=== PATIENT | male | born 1945 | race Caucasian/White ===

== ENCOUNTER 2024-07-21 09:55 | Outpatient (RCR) | payer MEDICARE, OTHER, SELFPAY ==
--- NOTE | 2024-07-21 12:23 | OPREHPOC ---
Outpatient Therapy Plan of Care This is a Multidisciplinary Plan of Care that may contain components documented by all disciplines (PT, OT, and ST.) PT Problem 1 PT Problem #1 Knowledge Deficit PT Goal 1 Goal / Goal Update Independent and compliant with HEP. Target Visit 4 PT Problem 2 PT Problem #2 Pain PT Goal 1 Goal / Goal Update Pt to report no more than 1/10 pain at rest. Pt to report no more than 3/10 pain with activity. Target Visit 12 PT Problem 3 PT Problem #3 Impaired Range of Motion PT Goal 1 Goal / Goal Update Pt to improve R knee AROM to 0-120. Target Visit 12 PT Problem 4 PT Problem #4 Impaired Strength PT Goal 1 Goal / Goal Update Pt to improve R LE strength to 5/5. Target Visit 12 PT Problem 5 PT Problem #5 Impaired Functional Mobility PT Goal 1 Goal / Goal Update Pt to improve 6MWT distance to 800 ft without rest . Pt to report being able to walk 35 laps (approx. 1 mile) near his home without rest. Pt to report 20% improvement on LEFS. Target Visit 12
--- NOTE | 2024-07-21 12:24 | PTOPEVAL1 ---
Assessment and note entered by Linda Mayfield, PT Evaluation Information Assessment Status Evaluation ICD-10 Condition Codes (PT) Pain in right knee M25.561,Encounter for other orthopedic aftercare Z47.89,Aftercare following joint replacement surgery Z47.1 Onset 06/24/24 Subjective Information Pt reports he underwent R TKA on 06/24/24. He states he received home health after surgery and states they gave him heel slides, supine hip abduction, quad sets, SLR, standing marching, and calf stretch. Shortly after surgery he had spontaneous chest pain and underwent cardiac cath one week ago. He's currently on precautions per his retail mortgage banker for no heavy lifting or strenuous exercise. Contacted his retail mortgage banker's nurse during evaluation and pt is cleared for vasopneumatic compression. States he initially ambulated using a walker after knee surgery and now only ambulates with a cane over uneven surfaces. Does not use an AD on level surfaces. Reported Pain Level Pain Score 4: Self Report Assessment PT Clinical Summary Mr. Lira is a 78 yo male who enters the clinic for rehabilitation following R TKA on 06/24/24. His incision is closed and demonstrates good healing. Pt demonstrates mild AROM deficits in the R knee along with mild strength deficits and moderate edema. He will benefit from skilled PT intervention to improve on these deficits to return to normal daily functional tasks at home and long distance walking without pain or difficulty. Plan of Care Interventions Electrical Stimulation,Hot Pack/Cold Pack, Intermittent Compression Pump,Manual Therapy,Neuro Re-education,Patient/Caregiver Education, Therapeutic Activities,Therapeutic Exercise,Self- Care/Home Management PT Services Indicated Yes Treatment Frequency and 2x/week for 12 visits Duration These treatments will address the objective and functional deficits as defined above. The patient will be advanced safely and appropriately in order for the patient to progress towards his/her prior level of function. Additional exercises will be introduced and as well as a comprehensive home exercise program upon discharge, if needed, ?to ensure carryover of functional gains achieved in the clinic. This treatment plan has been reviewed and agreement upon by the patient.
--- NOTE | 2024-08-20 10:19 | OPREHPOC ---
Outpatient Therapy Plan of Care This is a Multidisciplinary Plan of Care that may contain components documented by all disciplines (PT, OT, and ST.) PT Problem 1 PT Problem #1 Knowledge Deficit PT Goal 1 Goal / Goal Update Independent and compliant with HEP. Target Visit 4 Progress Met PT Problem 2 PT Problem #2 Pain PT Goal 1 Goal / Goal Update Pt to report no more than 1/10 pain at rest. -met Pt to report no more than 3/10 pain with activity. -met Target Visit 12 Progress Met PT Problem 3 PT Problem #3 Impaired Range of Motion PT Goal 1 Goal / Goal Update Pt to improve R knee AROM to 0-120. Target Visit 12 PT Problem 4 PT Problem #4 Impaired Strength PT Goal 1 Goal / Goal Update Pt to improve R LE strength to 5/5. -not assessed Target Visit 12 PT Problem 5 PT Problem #5 Impaired Functional Mobility PT Goal 1 Goal / Goal Update Pt to improve 6MWT distance to 800 ft without rest . -met Pt to report being able to walk 35 laps (approx. 1 mile) near his home without rest. -met Pt to report 20% improvement on LEFS. -not assessed Target Visit 12
--- NOTE | 2024-08-20 10:19 | PTOPPROG ---
Assessment and note entered by Rasheeda Dang, PT Evaluation Information Assessment Status Evaluation ICD-10 Condition Codes (PT) Pain in right knee M25.561,Encounter for other orthopedic aftercare Z47.89,Aftercare following joint replacement surgery Z47.1 Onset 06/24/24 Subjective Information Oswald reports his right knee is doing better. He has very little pain and he has been able to go up and down stairs reciprocally but it is still uncomfortable. He feels his walking and standing tolerance is back to normal. He has been able to walk approximately 1.5 miles on his own. He does still note swelling by the end of the day and stiffness in the right knee. Assessment PT Clinical Summary Oswald Lira has completed 10 skilled PT visits following a R TKA. He is reporting less pain in the knee and improved mobility. He has been able to start going up and down stairs reciprocally but it is still uncomfortable. He reports improved walking and standing tolerance. He objectively demonstrates improved right knee ROM, improved right knee strength, improved gait, and improved endurance. He has met 5 out of 7 goals. He will continue to benefit from skilled PT to achieve ROM and strength goals prior to discharge. Plan of Care Interventions Intermittent Compression Pump,Patient/Caregiver Education,Therapeutic Activities,Therapeutic Exercise PT Services Indicated Yes Treatment Frequency and Continue per original POC for 2 additional visits Duration These treatments will address the objective and functional deficits as defined above. The patient will be advanced safely and appropriately in order for the patient to progress towards his/her prior level of function. Additional exercises will be introduced and as well as a comprehensive home exercise program upon discharge, if needed, ?to ensure carryover of functional gains achieved in the clinic. This treatment plan has been reviewed and agreement upon by the patient.
--- NOTE | 2024-08-27 10:36 | OPREHPOC ---
Outpatient Therapy Plan of Care This is a Multidisciplinary Plan of Care that may contain components documented by all disciplines (PT, OT, and ST.) PT Problem 1 PT Problem #1 Knowledge Deficit PT Goal 1 Goal / Goal Update Independent and compliant with HEP. Target Visit 4 Progress Met PT Problem 2 PT Problem #2 Pain PT Goal 1 Goal / Goal Update Pt to report no more than 1/10 pain at rest. -met Pt to report no more than 3/10 pain with activity. -met Target Visit 12 Progress Met PT Problem 3 PT Problem #3 Impaired Range of Motion PT Goal 1 Goal / Goal Update Pt to improve R knee AROM to 0-120. Target Visit 12 Progress Met PT Problem 4 PT Problem #4 Impaired Strength PT Goal 1 Goal / Goal Update Pt to improve R LE strength to 5/5. -partially met Target Visit 12 Progress Partially Met PT Goal 2 Goal / Goal Update Continue Target Visit 16 PT Problem 5 PT Problem #5 Impaired Functional Mobility PT Goal 1 Goal / Goal Update Pt to improve 6MWT distance to 800 ft without rest . -met Pt to report being able to walk 35 laps (approx. 1 mile) near his home without rest. -met Pt to report 20% improvement on LEFS. -met Target Visit 12 Progress Met PT Goal 2 Goal / Goal Update Pt to improve Tinetti balance score by 3 points to indicate low fall risk. Pt to be able to perform static and dynamic balance activities on foam with only mild sway to simulate walking outdoors on uneven surfaces. Target Visit 16
--- NOTE | 2024-08-27 10:36 | PTOPPROG ---
Assessment and note entered by Linda Mayfield, PT Evaluation Information Assessment Status Progress ICD-10 Condition Codes (PT) Pain in right knee M25.561,Encounter for other orthopedic aftercare Z47.89,Aftercare following joint replacement surgery Z47.1 Onset 06/24/24 Subjective Information Oswald reports feeling like his knee has been getting better but it's still swollen and he's been having frequent falls. He notes 2 falls in the last 2 weeks both due to losing his balance. He would like to continue PT to keep progressing in strength and also to improve his balance to reduce falls. Assessment PT Clinical Summary Mr. Lira has attended 12 skilled PT visits following R TKA. He has made good improvements in his gait and is able to ambulate long distances again. He also has met his knee ROM goal and continues to make progressions in his LE strength. He does still demonstrate deficits in R hip and knee strength, is at moderate risk for falls per Tinetti with frequent falls in the last 2 weeks. He will benefit from additional skilled PT visits to continue improving on these deficits to improve safety and reduce falls. Plan of Care Interventions Intermittent Compression Pump,Patient/Caregiver Education,Therapeutic Activities,Therapeutic Exercise PT Services Indicated Yes Treatment Frequency and 2x/week for 4 additional visits Duration These treatments will address the objective and functional deficits as defined above. The patient will be advanced safely and appropriately in order for the patient to progress towards his/her prior level of function. Additional exercises will be introduced and as well as a comprehensive home exercise program upon discharge, if needed, ?to ensure carryover of functional gains achieved in the clinic. This treatment plan has been reviewed and agreement upon by the patient.
--- NOTE | 2024-09-11 12:15 | OPREHPOC ---
Outpatient Therapy Plan of Care This is a Multidisciplinary Plan of Care that may contain components documented by all disciplines (PT, OT, and ST.) PT Problem 1 PT Problem #1 Knowledge Deficit PT Goal 1 Goal / Goal Update Independent and compliant with HEP. Target Visit 4 Progress Met PT Problem 2 PT Problem #2 Pain PT Goal 1 Goal / Goal Update Pt to report no more than 1/10 pain at rest. -met Pt to report no more than 3/10 pain with activity. -met Target Visit 12 Progress Met PT Problem 3 PT Problem #3 Impaired Range of Motion PT Goal 1 Goal / Goal Update Pt to improve R knee AROM to 0-120. Target Visit 12 Progress Met PT Problem 4 PT Problem #4 Impaired Strength PT Goal 1 Goal / Goal Update Pt to improve R LE strength to 5/5. -partially met Target Visit 12 Progress Partially Met PT Goal 2 Goal / Goal Update Continue Target Visit 16 Progress Met PT Problem 5 PT Problem #5 Impaired Functional Mobility PT Goal 1 Goal / Goal Update Pt to improve 6MWT distance to 800 ft without rest . -met Pt to report being able to walk 35 laps (approx. 1 mile) near his home without rest. -met Pt to report 20% improvement on LEFS. -met Target Visit 12 Progress Met PT Goal 2 Goal / Goal Update Pt to improve Tinetti balance score by 3 points to indicate low fall risk. -met Pt to be able to perform static and dynamic balance activities on foam with only mild sway to simulate walking outdoors on uneven surfaces. -met Target Visit 16 Progress Met
--- NOTE | 2024-09-11 12:15 | PTOPDC ---
Assessment and note entered by Linda Mayfield, PT Evaluation Information Assessment Status Discharge ICD-10 Condition Codes (PT) Pain in right knee M25.561,Encounter for other orthopedic aftercare Z47.89,Aftercare following joint replacement surgery Z47.1 Onset 06/24/24 Subjective Information Oswald feels good today and feels ready to discharge from therapy. He feels like the last couple weeks of therapy that we added on have been very helpful for his balance. However he does still have occasional slips and falls, one of which occurred on Sunday. He was carrying too much in his hands on the way to the dumpster and slipped in the rocks, causing him to land on his R knee in a kneeling position. He was able to get up on his own and finish walking to the dumpster. Reported Pain Level Pain Score 0: Self Report Assessment PT Clinical Summary Mr. Lira presents for his 16th skilled PT visit following R TKA today. Given pt's recent falls, therapeutic activities since his las re- evaluation have focused more on improving balance and safety to reduce fall risk. He has met all his goals addressing his knee ROM and strength as well as goals addressing balance. He has been independent with his HEP and was educated in balance activities for home, and will discharge from skilled PT this date. Plan of Care PT Services Indicated No
== END 2024-09-11 20:00 | disposition home or self-care (01) ==
LOC: CHSPT 09:55
DX: Z47.1 Aftercare following joint replacement surgery (principal); M25.561 Pain in right knee; Z96.651 Presence of right artificial knee joint
CPT/HCPCS: 97016; 97110; 97112; 97150; 97161; 97530